=== PATIENT | female | born 1945 | race Caucasian/White ===

== ENCOUNTER 2020-10-13 15:36 | Outpatient (CLI) | payer OTHER | END 2020-10-13 23:59 | disposition home or self-care (01) | LOC: CFH 15:36 | PROVIDERS: ATTEND Nurse Practitioner Family | DX: I08.8 Other rheumatic multiple valve diseases (principal); I48.0 Paroxysmal atrial fibrillation | CPT/HCPCS: 93306 ==

== ENCOUNTER 2021-01-09 09:48 | Day surgery (SDC) | payer MEDICARE ==
[~2021-01-09] VITALS: Ht 162.6 cm; Wt 76.4 kg
[2021-01-09] MEDS ORDERED: METO50TA82 PO (10:41)
[2021-01-09] MEDS ORDERED: CARV6.252 PO ×2 (10:41)
[2021-01-09] MEDS ORDERED: SOTA80TA PO (10:41)
[2021-01-09] MEDS ORDERED: UBID100C41 PO (10:41)
[2021-01-09] MEDS ORDERED: ATOR20TA37 PO (10:41)
[2021-01-09] MEDS ORDERED: VIT1CAPS42 PO (10:41)
[2021-01-09] MEDS ORDERED: RIVA20TA PO (10:41)
[2021-01-09] MEDS ORDERED: FLECANIDE PO (10:42)
[2021-01-09] MEDS ORDERED: ACYC-114 PO (10:42)
[2021-01-09] MEDS ORDERED: CYAN25003 PO (10:44)
[2021-01-09 10:54] VITALS: BP 132/80
[2021-01-09 10:59] LABS: ANION GAP 8 mmol/L (5-15); CALCIUM 9.1 mg/dL (8.5-10.1); CHLORIDE 106 mmol/L (98-107); CREATININE 0.94 mg/dL (0.55-1.02)
[2021-01-09] MEDS ORDERED: PROPOFOL 10 MG/ML, 20ML ONE (11:00)
[2021-01-09] MEDS ORDERED: METOPROLOL SUCCINATE 50 MG TAB.ER.24H ONE (11:11)
[2021-01-09] MEDS ORDERED: METOPROLOL SUCCINATE 50 MG TAB.ER.24H PO ONE (11:30)
== END 2021-01-09 12:23 | disposition home or self-care (01) ==
LOC: CACL 09:48
PROVIDERS: ATTEND Internal Medicine Cardiovascular Disease
DX: I48.0 Paroxysmal atrial fibrillation (principal); I11.0 Hypertensive heart disease with heart failure; I50.32 Chronic diastolic (congestive) heart failure; Z79.01 Long term (current) use of anticoagulants; Z79.890 Hormone replacement therapy; Z79.899 Other long term (current) drug therapy
CPT/HCPCS: 36415; 80048; 92960; 93005; J2704

== ENCOUNTER → 2021-01-19 | Outpatient (CLI) | payer MEDICARE ==
[~2021-01-19] MED LIST: ACYC-40 PO; ATOR20TA37 PO; CARV6.252 PO; CYAN25003 PO; FLECANIDE PO; METO50TA82 PO; RIVA20TA PO; SOTA80TA PO; UBID100C41 PO; VIT1CAPS42 PO
== END | disposition home or self-care (01) ==
LOC: STAR 14:56
PROVIDERS: ATTEND Internal Medicine Cardiovascular Disease
DX: Z20.822 Contact with and (suspected) exposure to COVID-19 (principal)
CPT/HCPCS: U0003

== ENCOUNTER 2021-01-24 05:53 | Observation (INO) | payer MEDICARE ==
[~2021-01-24] VITALS: Ht 162.6 cm; Wt 77.0 kg
[2021-01-24 06:30] VITALS: BP 160/84
[2021-01-24] MEDS ORDERED: SODIUM CHLORIDE 0.9% 1,000 ML IV SCH (06:30)
[2021-01-24] MEDS ORDERED: MAGN400T36 PO (06:37)
[2021-01-24] MEDS ORDERED: Magnesium PO (06:37)
[2021-01-24] MEDS ORDERED: Vitamin B12 PO (06:39)
[2021-01-24 06:55] LABS: BASOPHILS % (AUTO) 1 % (0-1); EOSINOPHILS % (AUTO) 3 % (1-7); LYMPHOCYTES % (AUTO) 27 % (22-44); MEAN CORPUSCULAR HEMOGLOBIN 33.3 pg (27.0-34.8); MEAN CORPUSCULAR HGB CONC 33.8 g/dL (32.4-35.8); MEAN PLATELET VOLUME 7.9 fL (7.4-10.4); MONOCYTES % (AUTO) 7 % (2-9); NEUTROPHILS % (AUTO) 63 % (42-75); PLATELET COUNT 220 x10^3/uL (130-400); RED BLOOD COUNT 3.98 x10^6/uL (3.82-5.3); RED CELL DISTRIBUTION WIDTH 13.4 % (9.6-15.2)
[2021-01-24 07:00] LABS: MD NO
[2021-01-24 07:05] LABS: INTERNATIONAL NORMALIZED RATIO 1.11 (0.93-1.1); PROTHROMBIN TIME 11.9 Seconds (9.6-11.5)
[2021-01-24 07:06] LABS: ALANINE AMINOTRANSFERASE 40 U/L (12-78); ALBUMIN 3.9 g/dL (3.4-5.0); ANION GAP 5 mmol/L (5-15); CALCIUM 9.3 mg/dL (8.5-10.1); CHLORIDE 110 mmol/L (98-107)
[2021-01-24 07:16] LABS: ALKALINE PHOSPHATASE 107 U/L (45-117); BILIRUBIN,TOTAL 0.9 mg/dL (0.2-1.0); CREATININE 0.63 mg/dL (0.55-1.02); TOTAL PROTEIN 7.6 g/dL (6.4-8.2)
[2021-01-24 07:31] LABS: FREE T4 (FREE THYROXINE) 1.13 ng/dL (0.76-1.46)
[2021-01-24] MEDS ORDERED: MIDAZOLAM 1 MG/ML, 2ML ONE (07:47)
[2021-01-24] MEDS ORDERED: FENTANYL PF 250 MCG/5ML ONE (07:48)
[2021-01-24] MEDS ORDERED: LIDOCAINE 1%, 20ML ONE (08:13)
[2021-01-24] MEDS ORDERED: RIVAROXABAN 20 MG TABLET ONE (08:19)
[2021-01-24] MEDS ORDERED: DEXAMETHASONE 4 MG/ML, 1ML ONE (08:29)
[2021-01-24] MEDS ORDERED: ROCURONIUM 10MG/ML,5ML ONE (08:29)
[2021-01-24] MEDS ORDERED: PROPOFOL 10 MG/ML, 20ML ONE (08:29)
[2021-01-24] MEDS ORDERED: EPHEDRINE 50 MG/ML, 1ML ONE (08:46)
[2021-01-24] MEDS ORDERED: HEPARIN 1,000 UNITS/ML, 10ML ONE (09:00)
[2021-01-24] MEDS ORDERED: GLYCOPYRROLATE 0.2MG/1ML, 5ML ONE ×2 (11:33)
[2021-01-24] MEDS ORDERED: NEOSTIGMINE 1 MG/ML, 10ML ONE ×2 (11:33)
[2021-01-24] MEDS ORDERED: ONDANSETRON 2MG/ML, 2ML ONE (11:33)
[2021-01-24] MEDS ORDERED: METOPROLOL 1 MG/ML, 5ML ONE (11:38)
[2021-01-24] MEDS: RIVAROXABAN 20 MG TABLET PO SCH (12:00)
[2021-01-24] MEDS ORDERED: ONDANSETRON 2MG/ML, 2ML IVPush PRN (12:00)
[2021-01-24] MEDS ORDERED: RIVAROXABAN 20 MG TABLET PO SCH ×2 (12:00→21:00)
[2021-01-24] MEDS ORDERED: hydrALAzine 20 MG/ML, 1ML IV PRN (12:00)
[2021-01-24] MEDS ORDERED: DIAZEPAM 5 MG/ML, 2ML IVPush PRN (12:00)
[2021-01-24] MEDS ORDERED: PROMETHAZINE 25 MG/ML, 1ML IVPush PRN (12:00)
[2021-01-24] MEDS ORDERED: MEPERIDINE/PF 25MG/0.5ML IVPush PRN (12:00)
[2021-01-24] MEDS ORDERED: ACYCLOVIR 400 MG TABLET PO PRN (12:00)
[2021-01-24] MEDS ORDERED: MIDAZOLAM 1 MG/ML, 2ML IV PRN (12:00)
[2021-01-24] MEDS ORDERED: METOPROLOL TARTRATE 50 MG TAB PO PRN ×2 (12:00→19:00)
[2021-01-24] MEDS ORDERED: PROMETHAZINE 12.5 MG SUPP PR PRN (12:00)
[2021-01-24] MEDS ORDERED: DIPHENHYDRAMINE 50 MG/ML, 1ML IVPush PRN ×2 (12:00)
[2021-01-24] MEDS ORDERED: LABETALOL 5MG/ML, 20ML IV PRN (12:00)
[2021-01-24] MEDS ORDERED: ALBUTEROL SULFATE 2.5 MG/3 ML NPPB PRN (12:00)
[2021-01-24] MEDS ORDERED: FENTANYL PF 100 MCG/2ML IV PRN (12:00)
[2021-01-24] MEDS ORDERED: HYDROmorphone 1 MG/ML, 1ML INJ IVPush PRN (12:00)
[2021-01-24] MEDS ORDERED: ACETAMINOPHEN 325 MG TABLET PO PRN (12:00)
[2021-01-24] MEDS ORDERED: EPHEDRINE 50 MG/ML, 1ML IVPush PRN (12:00)
[2021-01-24] MEDS ORDERED: OXYcodone 5 MG/5 ML ORAL.SOL UDC PO PRN (12:00)
[2021-01-24 14:00] VITALS: BP 136/79
[2021-01-24 20:10] VITALS: BP 110/71
[2021-01-24] MEDS ORDERED: ATORVASTATIN 20 MG TABLET PO SCH (21:00)
[2021-01-24 21:15] VITALS: BP 117/70
[2021-01-25 02:16] VITALS: BP 105/71
[2021-01-25 06:48] VITALS: BP 102/62
[2021-01-25] MEDS ORDERED: LEVOTHYROXINE 25 MCG TABLET PO SCH (08:30)
[2021-01-25] MEDS ORDERED: FLECAINIDE 100MG TABLET PO SCH (08:30)
[2021-01-25] MEDS ORDERED: METO25TA35 PO (08:36)
[2021-01-25] MEDS ORDERED: FLEC100T PO (08:36)
[2021-01-25] MEDS ORDERED: FURO-93 PO (08:36)
[2021-01-25] MEDS ORDERED: LEVO25TA2 PO (08:37)
[2021-01-25] MEDS: RIVAROXABAN 20 MG TABLET PO SCH (08:39)
[2021-01-25] MEDS ORDERED: MAGNESIUM OXIDE 400 MG TABLET PO SCH (09:00)
[2021-01-25] MEDS ORDERED: CYANOCOBALAMIN 1,000 MCG TABLET PO SCH (09:00)
[2021-01-25] MEDS ORDERED: TEMPLATE NON-FORMULARY MED. (Vit C/E/Zn/Coppr/Lutein/Zeaxan** (Preservision Areds 2 Softge PO SCH (09:00)
[2021-01-25] MEDS ORDERED: VITAMIN B12 PO SCH (09:00)
[2021-01-25] MEDS ORDERED: TEMPLATE NON-FORMULARY MED. (Ubidecarenone** (Co Q-10**) 100 MG) PO SCH (09:00)
[2021-01-25] MEDS ORDERED: FUROSEMIDE 20 MG TABLET PO SCH (09:30)
[2021-01-25] MEDS ORDERED: METOPROLOL TARTRATE 25 MG TAB PO SCH (18:00)
== END 2021-01-25 11:43 | disposition home or self-care (01) ==
LOC: CACL 05:53 → ORIP 11:50 → 5SO 13:15 → DCLOUNGE 01-25 11:34
PROVIDERS: ADMIT Internal Medicine Cardiovascular Disease; ATTEND Internal Medicine Cardiovascular Disease
DX: I48.0 Paroxysmal atrial fibrillation (principal); I48.4 Atypical atrial flutter; I48.3 Typical atrial flutter; I11.0 Hypertensive heart disease with heart failure; I50.32 Chronic diastolic (congestive) heart failure; E78.5 Hyperlipidemia, unspecified; E78.00 Pure hypercholesterolemia, unspecified; F10.10 Alcohol abuse, uncomplicated; Z86.73 Personal history of transient ischemic attack (TIA), and cerebral infarction without residual deficits; Z79.899 Other long term (current) drug therapy
CPT/HCPCS: 36415; 71046; 76937; 80053; 84439; 84443; 85025; 85347; 85610; 85730; 93005; 93306; 93312; 93321; 93325; 93356; 93655; 93656; 93657; 93662; C1730; C1732; C1759; C1766; C1769; C1893; C1894; G0378; J1100; J1644; J2250; J2405; J2704; J2710; J3010; J3490

== ENCOUNTER 2021-03-16 12:24 | Emergency (ER) | payer MEDICARE ==
[~2021-03-16] VITALS: Ht 160 cm; Wt 74.0 kg
[~2021-03-16 12:24] MED LIST changes: +FLEC100T PO; +FURO-93 PO; +LEVO25TA2 PO; +MAGN400T36 PO; +METO25TA35 PO; +Magnesium PO; +Vitamin B12 PO
[2021-03-16 12:34] VITALS: BP 155/63
[2021-03-16] MEDS ORDERED: THIAMINE 100MG TABLET PO ONE (13:00)
[2021-03-16 13:15] LABS: BASOPHILS % (AUTO) 0 % (0-1); EOSINOPHILS % (AUTO) 1 % (1-7); LYMPHOCYTES % (AUTO) 5 % (22-44); MEAN CORPUSCULAR HEMOGLOBIN 33.5 pg (27.0-34.8); MEAN CORPUSCULAR HGB CONC 33.9 g/dL (32.4-35.8); MEAN PLATELET VOLUME 8.3 fL (7.4-10.4); MONOCYTES % (AUTO) 6 % (2-9); NEUTROPHILS % (AUTO) 88 % (42-75); PLATELET COUNT 182 x10^3/uL (130-400); RED BLOOD COUNT 3.98 x10^6/uL (3.82-5.3); RED CELL DISTRIBUTION WIDTH 13.2 % (9.6-15.2)
[2021-03-16 13:28] LABS: ALANINE AMINOTRANSFERASE 44 U/L (12-78); ALBUMIN 3.5 g/dL (3.4-5.0); ANION GAP 9 mmol/L (5-15); CALCIUM 8.9 mg/dL (8.5-10.1); CHLORIDE 104 mmol/L (98-107); CREATININE 0.76 mg/dL (0.55-1.02)
[2021-03-16 13:30] LABS: ALKALINE PHOSPHATASE 141 U/L (45-117); BILIRUBIN,TOTAL 1.1 mg/dL (0.2-1.0); TOTAL PROTEIN 7.2 g/dL (6.4-8.2)
[2021-03-16] MEDS ORDERED: THIAMINE 100MG TABLET ONE (13:58)
--- NOTE | 2021-03-16 14:02 | NUR ---
PT TO CT NOW
== END 2021-03-16 15:26 | disposition home or self-care (01) ==
LOC: ED 13:24
DX: I10 Essential (primary) hypertension (principal); R25.1 Tremor, unspecified; R51.9 Headache, unspecified; R94.31 Abnormal electrocardiogram [ECG] [EKG]; I48.91 Unspecified atrial fibrillation; E03.9 Hypothyroidism, unspecified; Z90.89 Acquired absence of other organs
CPT/HCPCS: 36415; 70450; 80053; 85025; 93005; 99285